=== PATIENT | female | born 1965 | race Caucasian/White ===

== ENCOUNTER → 2016-07-08 | Outpatient (CLI) | payer OTHER, BC ==
--- NOTE | 2016-07-08 08:41 | REP ---
Clinical: Trauma. Fall on ice with lower rib pain. Technique: Frontal view of the chest with multiple views of the right hemithorax. Findings: Frontal view of the chest demonstrates no acute cardiopulmonary process. Multiple views of the right hemithorax demonstrates no obvious acute rib fracture or pathology. Impression: Normal right rib series. No obvious rib fracture identified. Signed by Francis Boo MD 07/08/2016 08:33 A
== END ==
LOC: M LRY 07:51
PROVIDERS: ATTEND Family Medicine
DX: R07.81 Pleurodynia (principal)

== ENCOUNTER → 2017-05-14 | Outpatient (CLI) | payer OTHER, BC | LOC: M LRY 13:58 | DX: M12.561 Traumatic arthropathy, right knee (principal) | CPT/HCPCS: 73560 ==

== ENCOUNTER → 2017-06-04 | Outpatient (CLI) | payer BC | LOC: M RAD 11:13 | DX: M71.21 Synovial cyst of popliteal space [Baker], right knee (principal); M25.461 Effusion, right knee | CPT/HCPCS: 73721 ==

== ENCOUNTER → 2017-06-11 | Outpatient (CLI) | payer BC | LOC: M WHC 10:17 | DX: R92.2 Inconclusive mammogram (principal) | CPT/HCPCS: 77067 ==

== ENCOUNTER → 2017-06-11 | Outpatient (REF) | payer BC | LOC: M SFHCWAGY 10:45 | DX: Z12.4 Encounter for screening for malignant neoplasm of cervix (principal) | CPT/HCPCS: G0123 ==

== ENCOUNTER → 2017-06-24 | Outpatient (CLI) | payer BC | LOC: M RAD 12:55 | DX: Z12.31 Encounter for screening mammogram for malignant neoplasm of breast (principal) ==

== ENCOUNTER → 2017-09-09 | Outpatient (CLI) | payer BC ==
[2017-09-09 12:01] LABS: HEMATOCRIT 47.4 % (36.0-47.0); MEAN CORPUSCULAR HEMOGLOBIN 29.5 pg (27.0-33.0); MEAN CORPUSCULAR HGB CONC 33.8 g/dl (32.0-36.5); MEAN CORPUSCULAR VOLUME 87.5 fl (80.0-96.0); PLATELET COUNT, AUTOMATED 221 10^3/uL (150-450); RED BLOOD COUNT 5.42 10^6/uL (4.00-5.40); RED CELL DISTRIBUTION WIDTH 12.7 % (11.5-14.5); WHITE BLOOD COUNT 6.2 10^3/uL (4.0-10.0)
[2017-09-09 12:37] LABS: TOTAL 25(OH) VITAMIN D 14.5 NG/ML (30.0-100.0)
[2017-09-09 12:41] LABS: ALBUMIN 4.8 GM/DL (3.2-5.2); ALBUMIN/GLOBULIN RATIO 1.33 (1.00-1.93); ALKALINE PHOSPHATASE 115 U/L (45-117); ALT/SGPT 24 U/L (12-78); ANION GAP 8 MEQ/L (8-16); AST/SGOT 19 U/L (7-37); BILIRUBIN,TOTAL 0.7 MG/DL (0.2-1.0); BLOOD UREA NITROGEN 11 MG/DL (7-18); CALCIUM LEVEL 9.8 MG/DL (8.5-10.1); CARBON DIOXIDE LEVEL 29 MEQ/L (21-32); CHLORIDE LEVEL 104 MEQ/L (98-107); CREATININE FOR GFR 0.74 MG/DL (0.55-1.30); GLOMERULAR FILTRATION RATE > 60.0 (>51); GLUCOSE, FASTING 95 MG/DL (70-100); POTASSIUM SERUM 4.1 MEQ/L (3.5-5.1); SODIUM LEVEL 141 MEQ/L (136-145); TOTAL PROTEIN 8.4 GM/DL (6.4-8.2)
[2017-09-09 12:52] LABS: LITHIUM LEVEL 0.35 MEQ/L (0.60-1.20)
== END ==
LOC: M LRY 09:48
DX: Z79.891 Long term (current) use of opiate analgesic (principal)

== ENCOUNTER → 2017-11-18 | Outpatient (CLI) | payer BC | LOC: M LRY 14:00 | DX: M54.2 Cervicalgia (principal) | CPT/HCPCS: G0463 ==

== ENCOUNTER 2017-12-01 11:35 | Inpatient (IN) | payer BC, SELFPAY ==
[2017-12-01 12:19] LABS: HEMATOCRIT 44.2 % (36.0-47.0); HEMOGLOBIN 15.2 g/dl (12.0-15.5); MEAN CORPUSCULAR HEMOGLOBIN 29.8 pg (27.0-33.0); MEAN CORPUSCULAR HGB CONC 34.4 g/dl (32.0-36.5); MEAN CORPUSCULAR VOLUME 86.7 fl (80.0-96.0); PLATELET COUNT, AUTOMATED 211 10^3/uL (150-450); RED CELL DISTRIBUTION WIDTH 12.2 % (11.5-14.5); WHITE BLOOD COUNT 6.3 10^3/uL (4.0-10.0)
[2017-12-01 12:49] LABS: AMPHETAMINES LEVEL URINE NEGATIVE (NEGATIVE); BARBITURATES URINE NEGATIVE (NEGATIVE); BENZODIAZEPINES URINE NEGATIVE (NEGATIVE); CANNABINOIDS URINE POSITIVE (NEGATIVE); COCAINE METABOLITE URINE NEGATIVE (NEGATIVE); METHADONE URINE NEGATIVE (NEGATIVE); OPIATES URINE NEGATIVE (NEGATIVE); PHENCYCLIDINE URINE NEGATIVE (NEGATIVE)
[2017-12-01 12:55] LABS: ALBUMIN 4.1 GM/DL (3.2-5.2); ALBUMIN/GLOBULIN RATIO 1.17 (1.00-1.93); ALKALINE PHOSPHATASE 107 U/L (45-117); ALT/SGPT 27 U/L (12-78); ANION GAP 10 MEQ/L (8-16); AST/SGOT 17 U/L (7-37); BILIRUBIN,DIRECT 0.1 MG/DL (0.0-0.2); BILIRUBIN,TOTAL 0.5 MG/DL (0.2-1.0); BLOOD UREA NITROGEN 9 MG/DL (7-18); CALCIUM LEVEL 9.2 MG/DL (8.5-10.1); CARBON DIOXIDE LEVEL 27 MEQ/L (21-32); CHLORIDE LEVEL 104 MEQ/L (98-107); CREATININE FOR GFR 0.68 MG/DL (0.55-1.30); ETHYL ALCOHOL (ETHANOL) < 0.003 % (0.000-0.010); GLOMERULAR FILTRATION RATE > 60.0 (>51); GLUCOSE, FASTING 112 MG/DL (70-100); POTASSIUM SERUM 4.3 MEQ/L (3.5-5.1); SALICYLATE LEVEL < 1.7 MG/DL (5.0-30.0); SODIUM LEVEL 141 MEQ/L (136-145); TOTAL PROTEIN 7.6 GM/DL (6.4-8.2)
[2017-12-01 12:58] LABS: ACETAMINOPHEN LEVEL < 2.0 UG/ML (10.0-30.0)
[2017-12-01] MEDS ORDERED: LORazepam 1 MG TAB PO (13:15)
[2017-12-01] MEDS ORDERED: MOM 30ML SUSPENSION UDC PO (13:15)
[2017-12-01] MEDS: ACETAMINOPHEN TAB 650MG DOSE (2X325MG) PO (15:42)
[2017-12-01] MEDS: LORazepam 0.5 MG TAB PO (15:43)
[2017-12-01] MEDS: diphenhydrAMINE 50 MG CAP PO (21:40)
[2017-12-02] MEDS: LORazepam 0.5 MG TAB PO (08:26)
[2017-12-02] MEDS ORDERED: VENLAFAXINE **XR** 75MG CAPSULE PO (09:00)
[2017-12-02] MEDS: FLUoxetine 10 MG CAP PO (12:44)
[2017-12-02] MEDS: ANALGESIC BALM CRM 120 GM TOP ×2 (15:19→20:54)
[2017-12-02] MEDS: cloNIDine 0.1 MG TAB PO (20:50)
[2017-12-02] MEDS: diphenhydrAMINE 50 MG CAP PO (22:16)
[2017-12-03] MEDS: LORazepam 0.5 MG TAB PO ×4 (05:22→20:30)
[2017-12-03 07:22] LABS: HEMATOCRIT 42.3 % (36.0-47.0); HEMOGLOBIN 14.7 g/dl (12.0-15.5); MEAN CORPUSCULAR HEMOGLOBIN 30.1 pg (27.0-33.0); MEAN CORPUSCULAR HGB CONC 34.8 g/dl (32.0-36.5); MEAN CORPUSCULAR VOLUME 86.7 fl (80.0-96.0); PLATELET COUNT, AUTOMATED 200 10^3/uL (150-450); RED BLOOD COUNT 4.88 10^6/uL (4.00-5.40); RED CELL DISTRIBUTION WIDTH 12.2 % (11.5-14.5); WHITE BLOOD COUNT 6.3 10^3/uL (4.0-10.0)
[2017-12-03 07:44] LABS: ANION GAP 9 MEQ/L (8-16); BLOOD UREA NITROGEN 7 MG/DL (7-18); CALCIUM LEVEL 9.5 MG/DL (8.5-10.1); CARBON DIOXIDE LEVEL 26 MEQ/L (21-32); CHLORIDE LEVEL 107 MEQ/L (98-107); CREATININE FOR GFR 0.74 MG/DL (0.55-1.30); GLOMERULAR FILTRATION RATE > 60.0 (>51); GLUCOSE, FASTING 108 MG/DL (70-100); MAGNESIUM LEVEL 2.2 MG/DL (1.8-2.4); POTASSIUM SERUM 3.9 MEQ/L (3.5-5.1); SODIUM LEVEL 142 MEQ/L (136-145)
[2017-12-03] MEDS: FLUoxetine 10 MG CAP PO (08:52)
[2017-12-03] MEDS: ANALGESIC BALM CRM 120 GM TOP ×3 (08:54→20:31)
[2017-12-03] MEDS: MAALOX 30 ML SUSP *UDC PO (15:09)
[2017-12-03] MEDS: diphenhydrAMINE 50 MG CAP PO (20:30)
[2017-12-03] MEDS: cloNIDine 0.1 MG TAB PO (20:31)
[2017-12-04] MEDS: LORazepam 0.5 MG TAB PO ×2 (00:34→05:33)
[2017-12-04] MEDS: MAALOX 30 ML SUSP *UDC PO ×2 (00:37→14:40)
[2017-12-04] MEDS: ANALGESIC BALM CRM 120 GM TOP ×3 (08:20→21:03)
[2017-12-04] MEDS: FLUoxetine 10 MG CAP PO (08:20)
[2017-12-04] MEDS ORDERED: TETRAHYDROZOLINE OPHTH 0.05% 15 ML BTL OU (09:45)
[2017-12-04] MEDS: cloNIDine 0.1 MG TAB PO (21:02)
[2017-12-04] MEDS: diphenhydrAMINE 50 MG CAP PO (21:02)
[2017-12-04] MEDS: LOPERAMIDE 2 MG CAP PO (21:36)
[2017-12-05] MEDS: LORazepam 0.5 MG TAB PO (02:23)
[2017-12-05] MEDS: ANALGESIC BALM CRM 120 GM TOP ×3 (08:13→20:33)
[2017-12-05] MEDS: FLUoxetine 10 MG CAP PO (08:13)
[2017-12-05] MEDS: MAALOX 30 ML SUSP *UDC PO ×2 (13:07→19:04)
[2017-12-05] MEDS: cloNIDine 0.1 MG TAB PO (20:32)
[2017-12-05] MEDS: diphenhydrAMINE 50 MG CAP PO (20:32)
[2017-12-06 07:36] LABS: HEMATOCRIT 43.8 % (36.0-47.0); HEMOGLOBIN 14.8 g/dl (12.0-15.5); MEAN CORPUSCULAR HEMOGLOBIN 29.8 pg (27.0-33.0); MEAN CORPUSCULAR HGB CONC 33.8 g/dl (32.0-36.5); MEAN CORPUSCULAR VOLUME 88.3 fl (80.0-96.0); PLATELET COUNT, AUTOMATED 221 10^3/uL (150-450); RED BLOOD COUNT 4.96 10^6/uL (4.00-5.40); RED CELL DISTRIBUTION WIDTH 12.2 % (11.5-14.5); WHITE BLOOD COUNT 7.9 10^3/uL (4.0-10.0)
[2017-12-06 07:54] LABS: ANION GAP 10 MEQ/L (8-16); BLOOD UREA NITROGEN 12 MG/DL (7-18); CALCIUM LEVEL 9.3 MG/DL (8.5-10.1); CARBON DIOXIDE LEVEL 28 MEQ/L (21-32); CHLORIDE LEVEL 103 MEQ/L (98-107); CREATININE FOR GFR 0.77 MG/DL (0.55-1.30); GLOMERULAR FILTRATION RATE > 60.0 (>51); GLUCOSE, FASTING 101 MG/DL (70-100); MAGNESIUM LEVEL 2.7 MG/DL (1.8-2.4); POTASSIUM SERUM 4.1 MEQ/L (3.5-5.1); SODIUM LEVEL 141 MEQ/L (136-145)
[2017-12-06] MEDS: ANALGESIC BALM CRM 120 GM TOP ×3 (08:33→20:11)
[2017-12-06] MEDS: FLUoxetine 10 MG CAP PO (08:33)
[2017-12-06] MEDS: MAALOX 30 ML SUSP *UDC PO (15:45)
[2017-12-06] MEDS: cloNIDine 0.2 MG TAB PO (20:10)
[2017-12-06] MEDS: diphenhydrAMINE 50 MG CAP PO (20:10)
[2017-12-06] MEDS: LOPERAMIDE 2 MG CAP PO (20:10)
[2017-12-07] MEDS: FLUoxetine 10 MG CAP PO (08:54)
[2017-12-07] MEDS: ANALGESIC BALM CRM 120 GM TOP ×3 (08:54→20:57)
[2017-12-07] MEDS ORDERED: LORazepam 0.5 MG TAB PO (17:00)
[2017-12-07] MEDS: zolPIDEM TARTRATE 5 MG TAB PO (20:55)
[2017-12-07] MEDS: cloNIDine 0.2 MG TAB PO (20:56)
[2017-12-07] MEDS: diphenhydrAMINE 50 MG CAP PO (20:57)
[2017-12-08] MEDS: ANALGESIC BALM CRM 120 GM TOP ×3 (08:30→21:00)
[2017-12-08] MEDS: ACETAMINOPHEN TAB 650MG DOSE (2X325MG) PO ×2 (08:33→16:06)
[2017-12-08] MEDS: FLUoxetine 10 MG CAP PO (08:33)
[2017-12-08] MEDS: cloNIDine 0.1 MG TAB PO (21:02)
[2017-12-08] MEDS: zolPIDEM TARTRATE 5 MG TAB PO (21:02)
[2017-12-08] MEDS: diphenhydrAMINE 50 MG CAP PO (21:02)
[2017-12-09] MEDS: FLUoxetine 10 MG CAP PO (08:35)
[2017-12-09] MEDS: ANALGESIC BALM CRM 120 GM TOP (08:36)
[2017-12-09 08:50] LABS: HEMATOCRIT 44.4 % (36.0-47.0); HEMOGLOBIN 15.1 g/dl (12.0-15.5); MEAN CORPUSCULAR VOLUME 88.3 fl (80.0-96.0); PLATELET COUNT, AUTOMATED 254 10^3/uL (150-450); RED BLOOD COUNT 5.03 10^6/uL (4.00-5.40); RED CELL DISTRIBUTION WIDTH 12.1 % (11.5-14.5); WHITE BLOOD COUNT 6.7 10^3/uL (4.0-10.0)
[2017-12-09 09:07] LABS: ANION GAP 9 MEQ/L (8-16); BLOOD UREA NITROGEN 15 MG/DL (7-18); CALCIUM LEVEL 9.5 MG/DL (8.5-10.1); CARBON DIOXIDE LEVEL 29 MEQ/L (21-32); CHLORIDE LEVEL 102 MEQ/L (98-107); CREATININE FOR GFR 0.81 MG/DL (0.55-1.30); GLOMERULAR FILTRATION RATE > 60.0 (>51); GLUCOSE, FASTING 117 MG/DL (70-100); MAGNESIUM LEVEL 2.4 MG/DL (1.8-2.4); POTASSIUM SERUM 4.5 MEQ/L (3.5-5.1); SODIUM LEVEL 140 MEQ/L (136-145)
== END 2017-12-09 10:25 | disposition home or self-care (01) | DRG 751 ==
LOC: M PSY 12-05 15:41 → M ED 11:35 → M ED INP 13:14 → M PSY 13:49
DX: F33.9 Major depressive disorder, recurrent, unspecified (principal); F12.10 Cannabis abuse, uncomplicated; M25.512 Pain in left shoulder; M54.2 Cervicalgia; R11.2 Nausea with vomiting, unspecified; R19.7 Diarrhea, unspecified; Z63.4 Disappearance and death of family member; Z91.018 Allergy to other foods; Z81.8 Family history of other mental and behavioral disorders; Z88.7 Allergy status to serum and vaccine; Z88.8 Allergy status to other drugs, medicaments and biological substances; Z79.899 Other long term (current) drug therapy

== ENCOUNTER → 2018-05-05 | Outpatient (CLI) | payer BC ==
[~2018-05-05] MED LIST: AMBI5TAB PO; BENA25CA4 PO; EFFE75CA2; LORA2TAB9; MELA3TAB24 PO; PROZ10CA7 PO; VITA50005
--- NOTE | 2018-05-05 13:19 | REP ---
Right hip: Two views. History: Pain. Findings: AP and frog-leg views of the right hip show smooth rounded femoral head and intact hip joint space. Periarticular soft tissues are unremarkable. The right hemipelvis is intact. There are phleboliths in the right pelvis. Impression: Negative radiographs of the right hip. Electronically Signed by Derrell Aden MD 05/05/2018 01:10 P
--- NOTE | 2018-05-05 13:22 | REP ---
Pelvis: Single view. History: Pain. Comparison study: November 23, 2005. Findings: The bony pelvic ring is intact. No pelvic or sacral fracture is seen. Hip joint spaces are preserved. No femur fracture is seen. Impression: Negative AP view of the pelvis. Electronically Signed by Derrell Aden MD 05/05/2018 01:13 P
== END ==
LOC: M LRY 12:48
PROVIDERS: ATTEND Physician Assistant
DX: M25.551 Pain in right hip (principal)

== ENCOUNTER → 2018-12-26 | Outpatient (REF) | payer BC ==
[2018-12-29 00:07] LABS: HPV HYBRID CAPTURE II Negative (Negative)
== END ==
LOC: M SFHCWAGY 12:13
PROVIDERS: ATTEND Nurse Practitioner Family
DX: Z12.4 Encounter for screening for malignant neoplasm of cervix (principal)
CPT/HCPCS: 87624; G0123

== ENCOUNTER → 2018-12-26 | Outpatient (CLI) | payer BC ==
--- NOTE | 2018-12-26 13:30 | REPMRS ---
Patient History The patient states she had a clinical breast exam in 12/2018. Patient is postmenopausal and is nulliparous. Family history of breast cancer, colorectal cancer, ovarian cancer, and endometrial cancer in maternal grandmother. Benign core biopsy of the left breast, June 29, 2017. Benign ultrasound-guided cyst aspiration of the left breast, 1979. Taking estrogen for 1 year 8 months beginning at age 50. 3D TOMOSYNTHESIS WAS PERFORMED. [facility] lifetime risk for breast cancer is 13.9%. Digital Woman Screen Mammo: December 26, 2018 - Exam #: [id number] Bilateral CC and MLO view(s) were taken. Technologist: Gisel Cazares, Technologist Prior study comparison: June 24, 2017, left breast digital mammo diagnostic unilateral, performed at [facility]. June 11, 2017, digital woman screen mammo performed at [facility]. FINDINGS: The breast tissue is heterogeneously dense. This may lower the sensitivity of mammography. There has been no change in the appearance of the mammogram from the prior studies. There is a moderate amount of residual fibroglandular tissue which is fairly symmetric. There is no interval development of dominant mass, areas of architectural distortion, or clustered microcalcification typical of malignancy. Assessment: BI-RADS/ACR category 1 mammogram. Negative Mammogram. Recommendation Routine screening mammogram in 1 year (for women over age 40). This mammogram was interpreted with the aid of an FDA-approved computer-aided dectection system. Electronically Signed By: Calin Hodges MD 12/26/18 [id number]
== END ==
LOC: M WHC 11:33
PROVIDERS: ATTEND Nurse Practitioner Family
DX: Z12.31 Encounter for screening mammogram for malignant neoplasm of breast (principal); Z78.0 Asymptomatic menopausal state; Z79.818 Long term (current) use of other agents affecting estrogen receptors and estrogen levels; Z86.018 Personal history of other benign neoplasm

== ENCOUNTER → 2019-04-22 | Outpatient (CLI) | payer BC ==
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
== END ==
LOC: M RAD 08:11
PROVIDERS: ATTEND Family Medicine
DX: M54.5 Low back pain (principal)

== ENCOUNTER 2019-06-20 19:01 | Emergency (ER) | payer BC, OTHER ==
[~2019-06-20] VITALS: Ht 160 cm; Wt 88.4 kg
[~2019-06-20 19:01] MED LIST changes: +LORA2TAB14; -LORA2TAB9
[2019-06-20] MEDS ORDERED: BUDE0.254 NEB (19:15)
[2019-06-20] MEDS ORDERED: BROV15NE NEB (19:15)
[2019-06-20] MEDS ORDERED: TRAZ-257 PO (19:15)
[2019-06-20] MEDS ORDERED: ALB2.5NEB NEB (19:15)
[2019-06-20] MEDS ORDERED: CYMB60CA3 PO (19:15)
[2019-06-20 22:02] VITALS: BP 121/69
== END 2019-06-20 22:04 | disposition home or self-care (01) ==
LOC: M ED 19:01
DX: R04.0 Epistaxis (principal)

== ENCOUNTER → 2019-06-27 | Outpatient (REF) | payer BC ==
[~2019-06-27] MED LIST changes: +ALB2.5NEB NEB; +BROV15NE NEB; +BUDE0.254 NEB; +CYMB60CA3 PO; +TRAZ-257 PO
[2019-06-27 13:54] LABS: HEMATOCRIT 40.3 % (36.0-47.0); HEMOGLOBIN 13.5 g/dl (12.0-15.5); MEAN CORPUSCULAR HEMOGLOBIN 30.1 pg (27.0-33.0); MEAN CORPUSCULAR HGB CONC 33.5 g/dl (32.0-36.5); PLATELET COUNT, AUTOMATED 190 10^3/uL (150-450); RED BLOOD COUNT 4.48 10^6/uL (4.00-5.40); WHITE BLOOD COUNT 4.8 10^3/uL (4.0-10.0)
[2019-06-27 14:01] LABS: INR 0.94; PROTHROMBIN TIME 12.3 SECONDS (11.8-14.0)
[2019-06-27 14:02] LABS: PARTIAL THROMBOPLASTIN TIME 27.4 SECONDS (25.0-38.4)
[2019-06-27 14:28] LABS: ALBUMIN 3.8 GM/DL (3.2-5.2); ALT/SGPT 21 U/L (12-78); BILIRUBIN,TOTAL 0.4 MG/DL (0.2-1.0); BLOOD UREA NITROGEN 12 MG/DL (7-18); CALCIUM LEVEL 9.2 MG/DL (8.5-10.1); CARBON DIOXIDE LEVEL 27 MEQ/L (21-32); CHLORIDE LEVEL 104 MEQ/L (98-107); CHOLESTEROL LEVEL 285 MG/DL (<200); CHOLESTEROL RISK RATIO 4.453 (<5); CREATININE FOR GFR 0.71 MG/DL (0.55-1.30); FERRITIN 33 NG/ML (8-252); GLOMERULAR FILTRATION RATE > 60.0 (>51); GLUCOSE, FASTING 93 MG/DL (70-100); HDL CHOLESTEROL 64 MG/DL (>40); IRON (FE) 83 UG/DL (50-170); LDL CHOLESTEROL 192 MG/DL (<100); NON-HDL-C 221 MG/DL; PERCENT SATURATION 24.3 % (13.2-45.0); SODIUM LEVEL 137 MEQ/L (136-145); TOTAL IRON BINDING CAPACITY 342 UG/DL (250-450); TOTAL PROTEIN 7.2 GM/DL (6.4-8.2); TRIGLYCERIDES LEVEL 143 MG/DL (<150)
== END ==
LOC: M SFHCPLAZ 11:48
PROVIDERS: ATTEND Family Medicine
DX: R04.0 Epistaxis (principal); R53.83 Other fatigue; Z13.220 Encounter for screening for lipoid disorders; Z13.1 Encounter for screening for diabetes mellitus

== ENCOUNTER → 2019-12-12 | Outpatient (CLI) | payer BC, OTHER ==
--- NOTE | 2020-02-08 12:14 | REP ---
INDICATION: PAIN IN RIGHT FINGERS COMPARISON: None. TECHNIQUE: AP, lateral, bilateral oblique views right hand. FINDINGS: The osseous structures and joint spaces are intact and normal. There is no evidence for acute fracture or dislocation. Surrounding soft tissues are unremarkable. No subcutaneous emphysema or radiodense foreign body. IMPRESSION: . No acute fracture or dislocation. <Electronically signed by Francis Boo > 02/08/20 [id number]
== END ==
LOC: M WUC 12:41
PROVIDERS: ATTEND Nurse Practitioner Family
DX: M79.644 Pain in right finger(s) (principal)

== ENCOUNTER → 2020-03-29 | Outpatient (CLI) | payer BC ==
--- NOTE | 2020-03-29 15:12 | REPMRS ---
Patient History The patient states she had a clinical breast exam in March 2020.Family history of breast cancer, colorectal cancer, ovarian cancer, and endometrial cancer in maternal grandmother. Benign core biopsy of the left breast, June 29, 2017. Benign ultrasound-guided cyst aspiration of the left breast, 1979. Taking estrogen for 1 year 8 months beginning at age 50. Digital Woman Screen Mammo: March 29, 2020 - Exam #: [id number] Bilateral CC and MLO view(s) were taken. Technologist: Emerita Gutierres, Technologist Prior study comparison: December 26, 2018, bilateral digital woman screen mammo performed at [facility]. June 24, 2017, left breast digital mammo diagnostic unilateral, performed at [facility]. June 11, 2017, digital woman screen mammo performed at [facility]. October 01, 2010, bilateral digital mammo screening bilat performed at [facility]. FINDINGS: There are scattered fibroglandular densities. The Volpara volumetric breast density category is:B. There is an area of spiculation again noted in the medial aspect of the left breast. This has regressed significantly since the May 2017 prior study. This area was biopsied with benign result. There is a fat containing radiolucency adjacent to this and the findings are most compatible with fat necrosis. This is best appreciated on 3D tomography images, particularly in the MLO plane. No significant change from the most recent prior study. There has been no change in the appearance of the mammogram from the prior studies. There is a mild amount of scattered fibroglandular density which is fairly symmetric. There is no interval development of dominant mass, architectural distortion, or grouped microcalcification suggestive of malignancy. 3-D tomosynthesis shows no additional findings. Assessment: BI-RADS/ACR category 2 mammogram. Benign Findings. Recommendation Routine screening mammogram of both breasts in 1 year (for women over age 40). This patient's [facility] Lifetime Breast Cancer Risk is estimated at 13.6 %. This mammogram was interpreted with the aid of an FDA-approved computer-aided dectection system. Electronically Signed By: Chris Aden MD 03/29/20 [id number]
== END ==
LOC: M WHC 13:42
PROVIDERS: ATTEND Nurse Practitioner Family
DX: Z12.31 Encounter for screening mammogram for malignant neoplasm of breast (principal); Z86.018 Personal history of other benign neoplasm; Z79.899 Other long term (current) drug therapy

== ENCOUNTER → 2020-05-14 | Outpatient (CLI) | payer BC ==
--- NOTE | 2020-05-15 09:10 | REP ---
INDICATION: CONTUSION COMPARISON: None. TECHNIQUE: AP, lateral views of the right forearm. FINDINGS: Osseous structures are intact and there is no evidence for acute fracture or dislocation. No subcutaneous emphysema. A subtle 1.1 cm ovoid densities identified in the subcutaneous tissues of the mid forearm level of uncertain etiology or significance. IMPRESSION: No acute fracture or dislocation. Possible small ovoid soft tissue lesion. Correlation with physical examination is recommended. If necessary consider ultrasound to evaluate for possible cyst versus mass versus small hematoma. <Electronically signed by Francis Boo > 05/15/20 [id number]
== END ==
LOC: M WUC 11:31
PROVIDERS: ATTEND Physician Assistant
DX: S50.11XA Contusion of right forearm, initial encounter (principal); X58.XXXA Exposure to other specified factors, initial encounter; Y92.89 Other specified places as the place of occurrence of the external cause; Y93.89 Activity, other specified; Y99.8 Other external cause status

== ENCOUNTER → 2020-07-01 | Outpatient (CLI) | payer BC | LOC: M WUC 13:39 | PROVIDERS: ATTEND Physician Assistant | DX: S20.211A Contusion of right front wall of thorax, initial encounter (principal); W18.30XA Fall on same level, unspecified, initial encounter; Y92.009 Unspecified place in unspecified non-institutional (private) residence as the place of occurrence of the external cause ==

== ENCOUNTER 2021-01-01 11:01 | Emergency (ER) | payer BC, OTHER ==
[~2021-01-01] VITALS: Ht 157.5 cm; Wt 85.3 kg
[2021-01-01] MEDS ORDERED: ACET-910 PO (11:09)
[2021-01-01] MEDS ORDERED: methylPREDNISolone 125MG 2ML VIAL IV ONE (12:55)
[2021-01-01] MEDS ORDERED: LIDOCAINE 5% (LIDODERM) PATCH TD ONE (12:55)
[2021-01-01] MEDS ORDERED: CYCLOBENZAPRINE 10MG TABLET PO ONE (12:55)
[2021-01-01 14:05] LABS: BASO % 0.5 % (0.0-1.0); EOS # 0.1 10^3/uL (0.0-0.5); EOS % 1.2 % (0.0-3.0); HEMATOCRIT 42.9 % (36.0-47.0); HEMOGLOBIN 14.2 g/dl (12.0-15.5); LYMPH # 2.3 10^3/uL (1.5-5.0); LYMPH % 26.8 % (24.0-44.0); MEAN CORPUSCULAR HEMOGLOBIN 29.5 pg (27.0-33.0); MEAN CORPUSCULAR HGB CONC 33.1 g/dl (32.0-36.5); MEAN CORPUSCULAR VOLUME 89.2 fl (80.0-96.0); MONO # 0.6 10^3/uL (0.0-0.8); MONO % 6.5 % (2.0-8.0); NEUTROPHILS # 5.4 10^3/uL (1.5-8.5); NEUTROPHILS % 64.6 % (36.0-66.0); PLATELET COUNT, AUTOMATED 201 10^3/uL (150-450); RED BLOOD COUNT 4.81 10^6/uL (4.00-5.40); WHITE BLOOD COUNT 8.4 10^3/uL (4.0-10.0)
[2021-01-01 14:19] LABS: BLOOD UREA NITROGEN 13 MG/DL (7-18); CALCIUM LEVEL 9.3 MG/DL (8.5-10.1); CARBON DIOXIDE LEVEL 24 MEQ/L (21-32); CHLORIDE LEVEL 108 MEQ/L (98-107); CREATININE FOR GFR 0.65 MG/DL (0.55-1.30); GLOMERULAR FILTRATION RATE > 60.0 (>51); GLUCOSE, FASTING 99 MG/DL (70-100); POTASSIUM SERUM 4.6 MEQ/L (3.5-5.1); SODIUM LEVEL 138 MEQ/L (136-145)
--- NOTE | 2021-01-01 15:09 | REPVR ---
PROCEDURE INFORMATION: Exam: CT Lumbar Spine Without Contrast Exam date and time: 01/01/2021 2:00 PM Age: 55 years old Clinical indication: Low back pain; Additional info: Midline/left low back pain radiating to lle TECHNIQUE: Imaging protocol: Computed tomography images of the lumbar spine without contrast. Radiation optimization: All CT scans at this facility use at least one of these dose optimization techniques: automated exposure control; mA and/or kV adjustment per patient size (includes targeted exams where dose is matched to clinical indication); or iterative reconstruction. COMPARISON: MRI-Spine, L.S. without con 04/22/2019 8:46 AM FINDINGS: Vertebrae: No acute fracture. Normal alignment. Discs/Spinal canal/Neural foramina: Mild degenerative changes of the lumbar spine are noted. A left subarticular disc protrusion is present L1-L2. There is no significant spinal canal stenosis within the lumbar spine. No severe neural foraminal narrowing is present. Soft tissues: Unremarkable. IMPRESSION: No acute abnormality. Electronically signed by: Jefferson Charles On 01/01/2021 15:09:27 PM
[2021-01-01] MEDS ORDERED: ONDANSETRON 4MG/2ML VIAL IV ONE (15:35)
[2021-01-01] MEDS ORDERED: MORPHINE 4 MG/ML 1ML VIAL/SYRINGE (J2270) IV ONE (15:35)
[2021-01-01] MEDS ORDERED: KETOROLAC 30 MG/ML 1ML VIAL IV ONE (15:35)
--- NOTE | 2021-01-01 15:51 | REP ---
INDICATION: L hip pain. COMPARISON: 05/05/2018. TECHNIQUE: AP view pelvis, AP and frogleg left hip. FINDINGS: There is no evidence of acute fracture, dislocation or intrinsic bone disease. The hip joints do not demonstrate significant arthritic change. Multiple phleboliths are seen in the pelvis. IMPRESSION: Negative exam. <Electronically signed by Calin Hodges > 01/01/21 [id number]
[2021-01-01] MEDS ORDERED: KETO10TAB PO (17:44)
[2021-01-01] MEDS ORDERED: LIDO5DIS41 TOP (17:44)
[2021-01-01] MEDS ORDERED: METH-1164 PO (17:44)
[2021-01-01 18:00] VITALS: BP 162/101
[2021-01-01] MEDS ORDERED: **NOTE PATIENT COMMENT** MISC XX SCH (21:00)
== END 2021-01-01 18:11 | disposition home or self-care (01) ==
LOC: M ED 11:01
DX: M51.26 Other intervertebral disc displacement, lumbar region (principal); M47.26 Other spondylosis with radiculopathy, lumbar region; F41.9 Anxiety disorder, unspecified; F32.9 Major depressive disorder, single episode, unspecified; Z87.442 Personal history of urinary calculi; Z88.8 Allergy status to other drugs, medicaments and biological substances; Z88.7 Allergy status to serum and vaccine; Z79.899 Other long term (current) drug therapy
CPT/HCPCS: 72131; 73502; 80047; 80048; 81001; 85025; 96374; 96375; 99284; J1885; J2270; J2405; J2930

== ENCOUNTER 2021-01-05 13:29 | Emergency (ER) | payer BC ==
[~2021-01-05] VITALS: Ht 157.5 cm; Wt 85.5 kg
[~2021-01-05 13:29] MED LIST changes: +ACET-910 PO; +KETO10TAB PO; +LIDO5DIS41 TOP; +METH-1164 PO
[2021-01-05] MEDS ORDERED: CYCLOBENZAPRINE 10MG TABLET PO ONE (17:20)
[2021-01-05] MEDS ORDERED: KETOROLAC 60MG 2ML VIAL IM ONE (17:20)
--- NOTE | 2021-01-05 19:11 | REPVR ---
PROCEDURE INFORMATION: Exam: MR Lumbar Spine Without Contrast Exam date and time: 01/05/2021 5:14 PM Age: 55 years old Clinical indication: Pain; Lumbago with sciatica; Left; Additional info: Lumbar pain/weakness in left leg TECHNIQUE: Imaging protocol: Multiplanar magnetic resonance images of the lumbar spine without intravenous contrast. COMPARISON: CT Spine, lumbar w/o contrast 01/01/2021 1:52 PM FINDINGS: Vertebrae: Unremarkable. Spinal cord: Normal signal. No cord compression. L1-L2: There is a mild asymmetric, left greater than right, degenerative central spinal stenosis at L1-L2 secondary to diffuse annular bulging, a left posterior and foraminal disc protrusion, thickened ligamentum flavum without significant facet joint arthropathy. L2-L3: Bulging annulus at L2-L3 with a transverse tear in the posterior annulus is resulting in a mild central spinal stenosis. No significant facet joint arthropathy. L3-L4: Mild bilateral facet joint arthropathy L3-L4. Otherwise unremarkable. L4-L5: [id number] bilateral facet joint arthropathy L4-L5. Otherwise unremarkable. L5-S1: Marked bilateral facet joint arthropathy L5-S1 with fluid in the left facet joint suggesting synovitis. Soft tissues: Unremarkable. IMPRESSION: 1. Bulging annulus and left posterolateral and foraminal disc protrusion L1-L2 asymmetrically effacing the thecal sac, left greater than right, resulting in a mild degenerative spinal stenosis. 2. Bulging annulus L2-L3 with a transverse tear in the posterior annulus without neural compromise. There is a mild central spinal stenosis. 3. Possible synovitis in the left facet joint at L5-S1. Electronically signed by: Reynaldo Albarran On 01/05/2021 19:10:47 PM
[2021-01-05 19:50] VITALS: BP 124/76
--- NOTE | 2021-01-08 10:45 | ED PDOC ---
Post-Departure Follow-Up mri ls spine faxed to dr castaneda for fu Sendy Charles MD Jan 08, 2021 10:45
== END 2021-01-05 19:50 | disposition home or self-care (01) ==
LOC: M ED 13:29
DX: M48.061 Spinal stenosis, lumbar region without neurogenic claudication (principal); Z79.51 Long term (current) use of inhaled steroids; Z79.899 Other long term (current) drug therapy; Z88.7 Allergy status to serum and vaccine; Z88.8 Allergy status to other drugs, medicaments and biological substances; Z91.018 Allergy to other foods
CPT/HCPCS: 72148; 81001; 96372; 99283; J1885

== ENCOUNTER → 2021-04-01 | Outpatient (CLI) | payer BC ==
[~2021-04-01] MED LIST changes: -CYMB60CA3 PO; +CYMB60CA4 PO
== END ==
LOC: M WUC 13:12
PROVIDERS: ATTEND Nurse Practitioner Family
DX: M54.2 Cervicalgia (principal); S20.221A Contusion of right back wall of thorax, initial encounter; M25.531 Pain in right wrist; M25.561 Pain in right knee; M17.11 Unilateral primary osteoarthritis, right knee; Y92.9 Unspecified place or not applicable; Y93.9 Activity, unspecified; Y99.9 Unspecified external cause status

== ENCOUNTER → 2021-06-24 | Outpatient (CLI) | payer BC | LOC: M WUC 11:38 | DX: M25.561 Pain in right knee (principal) ==

== ENCOUNTER 2021-06-25 13:13 | Emergency (ER) | payer BC ==
[~2021-06-25] VITALS: Ht 160 cm; Wt 85.6 kg
[2021-06-25] MEDS ORDERED: KETOROLAC TROMETHAMINE 10 MG TAB PO ONE (15:10)
[2021-06-25] MEDS ORDERED: KETO10TAB PO (15:12)
[2021-06-25 15:29] VITALS: BP 136/86
== END 2021-06-25 15:31 | disposition home or self-care (01) ==
LOC: M ED 13:13
DX: S83.91XA Sprain of unspecified site of right knee, initial encounter (principal); W00.0XXA Fall on same level due to ice and snow, initial encounter; Y92.009 Unspecified place in unspecified non-institutional (private) residence as the place of occurrence of the external cause; Y93.9 Activity, unspecified; Y99.9 Unspecified external cause status; Z88.8 Allergy status to other drugs, medicaments and biological substances; Z88.7 Allergy status to serum and vaccine; Z79.899 Other long term (current) drug therapy

== ENCOUNTER 2021-11-11 18:53 | Emergency (ER) | payer BC ==
[~2021-11-11] VITALS: Ht 160 cm; Wt 81.8 kg
[2021-11-11 20:27] LABS: HEMATOCRIT 43.7 % (36.0-47.0); HEMOGLOBIN 14.8 g/dl (12.0-15.5); MEAN CORPUSCULAR HEMOGLOBIN 30.5 pg (27.0-33.0); MEAN CORPUSCULAR HGB CONC 33.9 g/dl (32.0-36.5); MEAN CORPUSCULAR VOLUME 89.9 fl (80.0-96.0); PLATELET COUNT, AUTOMATED 182 10^3/uL (150-450); RED BLOOD COUNT 4.86 10^6/uL (4.00-5.40); WHITE BLOOD COUNT 6.5 10^3/uL (4.0-10.0)
[2021-11-11 20:37] LABS: AMPHETAMINES LEVEL URINE NEGATIVE (NEGATIVE); BARBITURATES URINE NEGATIVE (NEGATIVE); BENZODIAZEPINES URINE NEGATIVE (NEGATIVE); CANNABINOIDS URINE POSITIVE (NEGATIVE); COCAINE METABOLITE URINE NEGATIVE (NEGATIVE); METHADONE URINE NEGATIVE (NEGATIVE); OPIATES URINE NEGATIVE (NEGATIVE); PHENCYCLIDINE URINE NEGATIVE (NEGATIVE)
[2021-11-11 21:05] LABS: RSV AMPLIFICATION NEGATIVE (NEGATIVE)
[2021-11-11 21:15] LABS: ACETAMINOPHEN LEVEL < 2.0 UG/ML (10.0-30.0); ALT/SGPT 17 U/L (12-78); BILIRUBIN,DIRECT < 0.1 MG/DL (0.0-0.2); BILIRUBIN,TOTAL 0.3 MG/DL (0.2-1.0); BLOOD UREA NITROGEN 12 MG/DL (7-18); CALCIUM LEVEL 9.3 MG/DL (8.5-10.1); CARBON DIOXIDE LEVEL 24 MEQ/L (21-32); CHLORIDE LEVEL 113 MEQ/L (98-107); CREATININE FOR GFR 0.77 MG/DL (0.55-1.30); ETHYL ALCOHOL (ETHANOL) < 0.003 % (0.000-0.010); GLOMERULAR FILTRATION RATE > 60.0 (>51); GLUCOSE, FASTING 103 MG/DL (70-100); SALICYLATE LEVEL 1.8 MG/DL (5.0-30.0); SODIUM LEVEL 144 MEQ/L (136-145); TOTAL PROTEIN 7.7 GM/DL (6.4-8.2)
[2021-11-11 23:42] VITALS: BP 130/88
== END 2021-11-11 23:40 | disposition home or self-care (01) ==
LOC: M ED 18:53
DX: F43.0 Acute stress reaction (principal); Z88.8 Allergy status to other drugs, medicaments and biological substances; Z88.7 Allergy status to serum and vaccine; Z79.899 Other long term (current) drug therapy

== ENCOUNTER → 2022-01-08 | Outpatient (CLI) | payer BC | LOC: M WHC 13:52 | PROVIDERS: ATTEND Advanced Practice Midwife | DX: Z12.31 Encounter for screening mammogram for malignant neoplasm of breast (principal) ==

== ENCOUNTER 2022-10-06 23:12 | Emergency (ER) | payer BC ==
[~2022-10-06] VITALS: Ht 160 cm; Wt 74.4 kg
[2022-10-06 23:15] VITALS: BP 138/75; TEMP 98.1; O2SAT 97
[2022-10-06] MEDS ORDERED: CLIMDIS (23:24)
[2022-10-06] MEDS ORDERED: L-ME7.5T8 PO (23:24)
== END 2022-10-07 00:31 | disposition left against medical advice (07) ==
LOC: M ED 23:12
DX: Z53.21 Procedure and treatment not carried out due to patient leaving prior to being seen by health care provider (principal)

== ENCOUNTER → 2023-05-12 | Outpatient (CLI) | payer BC ==
[~2023-05-12] MED LIST changes: +CLIMDIS; +L-ME7.5T8 PO
== END ==
LOC: M WUC 13:30
PROVIDERS: ATTEND Nurse Practitioner Family
DX: R07.82 Intercostal pain (principal)

== ENCOUNTER → 2023-07-02 | Outpatient (CLI) | payer BC | LOC: M WHC 11:14 | PROVIDERS: ATTEND Advanced Practice Midwife | DX: Z12.31 Encounter for screening mammogram for malignant neoplasm of breast (principal) ==

== ENCOUNTER → 2023-07-02 | Outpatient (REF) | payer BC | LOC: M SFHCWAGY 17:43 | PROVIDERS: ATTEND Advanced Practice Midwife | DX: Z01.419 Encounter for gynecological examination (general) (routine) without abnormal findings (principal); Z11.51 Encounter for screening for human papillomavirus (HPV) | CPT/HCPCS: 87624; G0123 ==

== ENCOUNTER → 2023-07-21 | Outpatient (CLI) | payer BC | LOC: M WHC 14:36 | PROVIDERS: ATTEND Advanced Practice Midwife | DX: Z12.31 Encounter for screening mammogram for malignant neoplasm of breast (principal) ==

== ENCOUNTER → 2023-12-16 | Outpatient (CLI) | payer BC | LOC: M WUC 12:55 | PROVIDERS: ATTEND Student in an Organized Health Care Education/Training Program | DX: M79.671 Pain in right foot (principal) ==

== ENCOUNTER → 2024-10-19 | Outpatient (CLI) | payer BC ==
[~2024-10-19] MED LIST changes: -AMBI5TAB PO; +LIDO1ADH93 TOP; -LIDO5DIS41 TOP; +ZOLP-532 PO
[2024-10-19 11:20] LABS: BASO # 0.0 10^3/uL (0.0-0.2); BASO % 0.7 % (0.0-1.0); EOS # 0.3 10^3/uL (0.0-0.5); EOS % 5.4 % (0.0-3.0); LYMPH # 2.0 10^3/uL (1.5-5.0); LYMPH % 33.4 % (24.0-44.0); MONO # 0.6 10^3/uL (0.0-0.8); MONO % 10.3 % (2.0-8.0); NEUTROPHILS # 3.0 10^3/uL (1.5-8.5); NEUTROPHILS % 49.9 % (36.0-66.0); PLATELET COUNT, AUTOMATED 211 10^3/uL (150-450)
[2024-10-19 11:25] LABS: CALCIUM LEVEL 9.1 MG/DL (8.3-10.6); CARBON DIOXIDE LEVEL 30 MMOL/L (20-31); CHLORIDE LEVEL 103 MMOL/L (98-107); CHOLESTEROL LEVEL 244 MG/DL (<200); CHOLESTEROL RISK RATIO 4.20 (<5); CREATININE FOR GFR 0.65 MG/DL (0.55-1.30); GLOMERULAR FILTRATION RATE > 90.0 (>45); LDL CHOLESTEROL 141.6 MG/DL (<100); NON-HDL-C 186.0 MG/DL; POTASSIUM SERUM 4.7 MMOL/L (3.5-5.1); SODIUM LEVEL 141 MMOL/L (136-145); TRIGLYCERIDES LEVEL 222 MG/DL (<150)
[2024-10-19 11:28] LABS: ESTIMATED AVERAGE GLUCOSE 103.0 MG/DL (60-110)
== END ==
LOC: M PLALAB 07:18
PROVIDERS: ATTEND Student in an Organized Health Care Education/Training Program
DX: Z13.1 Encounter for screening for diabetes mellitus (principal); Z13.220 Encounter for screening for lipoid disorders; W57.XXXD Bitten or stung by nonvenomous insect and other nonvenomous arthropods, subsequent encounter

== ENCOUNTER → 2024-12-14 | Outpatient (CLI) | payer BC ==
[~2024-12-14] MED LIST changes: +PROZ10CA11 PO; -PROZ10CA7 PO
== END ==
LOC: M WHC 13:30
PROVIDERS: ATTEND Advanced Practice Midwife
DX: Z53.9 Procedure and treatment not carried out, unspecified reason (principal)